=== PATIENT | female | born 1985 | race Caucasian/White ===

== ENCOUNTER 2018-11-12 13:21 | Inpatient (IN) | payer OTHER ==
[2018-11-12 15:05] VITALS: BMI 25.0
--- NOTE | 2018-11-12 15:24 | HP ---
COWS - Scale Resting Pulse: 0= [place] 80 or Below Sweatin= Chills/Flushing Restless Observation: 3= Extraneous Movement Pupil Size: 1= Pupils >than Normal Bone or Joint Aches: 2= Severe Diffuse Aches Runny Nose/ Eye Tearin= Runny Nose/Eyes GI Upset > 30mins: 2= Nausea/Diarrhea Tremor Observation: 2= Slight Tremor Visible Yawning Observation: 1= 1-2x During Session Anxiety or Irritability: 2=Irritable/Anxious Goose Flesh Skin: 0=Smooth Skin COWS Score: 16 CIWA Score Nausea/Vomitin Muscle Tremors: 2 Anxiety: 2 Agitation: 2 Paroxysmal Sweats: 1-Minimal Palms Moist Orientation: 0-Oriented Tacttile Disturbances: 1-Very Mild Itch/Numbness Auditory Disturbances: 1-Very Mild Visual Disturbances: 0-None Headache: 2-Mild CIWA-Ar Total Score: 13 - Admission Criteria OASAS Guidelines: Admission for Medically Managed Detox: Requires at least one of the followin. CIWA greater than 12 2. Seizures within the past 24 hours 3. Delirium tremens within the past 24 hours 4. Hallucinations within the past 24 hours 5. Acute intervention needed for co occurring medical disorder 6. Acute intervention needed for co occurring psychiatric disorder 7. Severe withdrawal that cannot be handled at a lower level of care (continued vomiting, continued diarrhea, abnormal vital signs) requiring intravenous medication and/or fluids 8. Patient presents the following: CIWA greater than 12 Admission Criteria Met: Admission criteria met Admission ROS [facility] Chief Complaint: i need help to stop using heroin,cocaine,alcohol Allergies/Adverse Reactions: Allergies Allergy/AdvReac Type Severity Reaction Status Date / Time peanut Allergy Severe Difficulty Verified 11/12/18 15:06 Breathing History of Present Illness: this 33 years old female with heroin,cocaine iv and alcohol dependence seeking detox,withdrawal symptom,last detox [facility] in 10/12 not completed seizure drug related,last 07/11 nicotine dependence weight loss bipolar disorder,ptsd no significant period of sobriety Exam Limitations: No Limitations - Ebola screening Have you traveled outside of the country in the last 21 days: No Have you had contact with anyone from an Ebola affected area: No Have you been sick,other than usual withdrawal symptoms: No Do you have a fever: No - Review of Systems Constitutional: Chills, Loss of Appetite, Malaise, Night Sweats, Changes in sleep, Weakness, Unintentional Wgt. Loss EENT: reports: Tearing, Nose Congestion Respiratory: reports: No Symptoms reported Cardiac: reports: No Symptoms Reported GI: reports: Diarrhea, Nausea, Vomiting, Abdominal cramping : reports: No Symptoms Reported Musculoskeletal: reports: Back Pain, Joint Pain, Muscle Pain, Joint Stiffness Integumentary: reports: Dryness Neuro: reports: Headache, Tremors Endocrine: reports: No Symptoms Reported Hematology: reports: No Symptoms Reported Psychiatric: reports: No Sypmtoms Reported, Judgement Intact, Mood/Affect Appropiate, Orientated x3, other (bipolar disorder) Other Systems: Reviewed and Negative Patient History - Patient Medical History Hx Anemia: No Hx Asthma: Yes (childhood asthma) Hx Chronic Obstructive Pulmonary Disease (COPD): No Hx Cancer: No Hx Cardiac Disorders: No Hx Congestive Heart Failure: No Hx Hypertension: No Hx Hypercholesterolemia: No Hx Pacemaker: No HX Cerebrovascular Accident: No Hx Seizures: Yes (last seizure 2017) Hx Dementia: No Hx Diabetes: No Hx Liver Disease: No Hx Genitourinary Disorders: No Hx Sexually Transmitted Disorders: No Hx Renal Disease (ESRD): No Hx Thyroid Disease: No Hx Human Immunodeficiency Virus (HIV): No (last 11/12/18) Hx Hepatitis C: No Hx Depression: No Hx Suicide Attempt: No Hx Bipolar Disorder: Yes (on med) Hx Schizophrenia: No Other Medical History: no suicidal,no homicidal - Patient Surgical History Hx Orthopedic Surgery: Yes (lenthening of right femur and tibia at age of 13) - PPD History Previous Implant?: Yes Documented Results: Negative w/o proof Implanted On Prior [facility] Admission?: No PPD to be Administered?: Yes - Reproductive History Patient is a Female of Child Bearing Age (11 -55 yrs old): Yes Last Menstrual Period: 10/28/18 Patient : No - Smoking Cessation Smoking history: Current every day smoker Have you smoked in the past 12 months: Yes Aproximately how many cigarettes per day: 15 Cigars Per Day: 0 Hx Chewing Tobacco Use: No Initiated information on smoking cessation: Yes 'Breaking Loose' booklet given: 11/12/18 - Substance & Tx. History Hx Alcohol Use: Yes Hx Substance Use: Yes Substance Use Type: Cocaine, Heroin Hx Substance Use Treatment: Yes ([facility] 10/12 not completed) - Substances Abused Heroin Route: Injection Frequency: Daily Amount used: 10 BAGS Age of first use: 29 Date of Last Use: 11/12/18 Cocaine Route: Injection Frequency: 3-6 times per week Amount used: 2-3 BAGS Age of first use: 29 Date of Last Use: 11/11/18 Alcohol Route: Oral Frequency: Daily Amount used: 1/2 [place] Age of first use: 29 Date of Last Use: 11/10/18 Crack Route: Smoking Frequency: Daily Amount used: 7 BAGS Age of first use: 32 Date of Last Use: 11/12/18 Family Disease History - Family Disease History Family History: Denies Admission Physical Exam [facility] - Vital Signs Vital Signs: Vital Signs - 24 hr 11/12/18 15:03 Temperature 97.1 F L Pulse Rate 73 Respiratory 20 Rate Blood Pressure 128/74 - Physical General Appearance: Yes: Moderate Distress, Tremorous, Irritable, Sweating, Anxious HEENTM: Yes: Normal ENT Inspection, MANUEL, Pharynx Normal Respiratory: Yes: Lungs Clear, Normal Breath Sounds, No Respiratory Distress, Other (history of childhood asthma) Neck: Yes: Within Normal Limits, Supple, Trachea in good position Breast: Yes: Breast Exam Deferred Cardiology: Yes: Within Normal Limits, Regular Rhythm, Regular Rate, S1, S2 Abdominal: Yes: Within Normal Limits, Normal Bowel Sounds, Non Tender, Flat, Soft Genitourinary: Yes: Within Normal Limits Back: Yes: Muscle Spasm Musculoskeletal: Yes: Back pain, Joint Stiffness, Muscle Pain Extremities: Yes: Tremors 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 - Detox or Rehab [facility] Level of Care: Medically Managed Detox Regimen/Protocol: Methadone/Librium S Breath Alcohol Content Breath Alcohol Content: 0 Urine Pregancy Test - Result Urine Test Results: Negative- NO Line Present Urine Drug Screen - Results Drug Screen Negative: No Urine Drug Screen Results: LINDA-Cocaine, OPI-Opiates, FEN-Fentanyl Inpatient Rehab Admission - Rehab Decision to Admit Inpatient rehab admission?: No
[2018-11-12] MEDS ORDERED: hydrOXYzine PAMOATE 25 MG CAPSULE (FP) PO PRN (15:44)
[2018-11-12] MEDS ORDERED: NICOTINE POLACRILEX 2 MG GUM BC PRN (15:44)
[2018-11-12] MEDS ORDERED: LOPERAMIDE HCL 2 MG CAPSULE PO PRN (15:44)
[2018-11-12] MEDS ORDERED: MENTHOL/PHENOL 1 EACH UD MM PRN (15:44)
[2018-11-12] MEDS ORDERED: MAGNESIUM CITRATE 300 ML BOTTLE PO PRN (15:44)
[2018-11-12] MEDS ORDERED: MAG HYDROX/AL HYDROX/SIMETH 30 ML UNIT-DOSE CUP PO PRN (15:44)
[2018-11-12] MEDS ORDERED: chlordiazePOXIDE HCL 25 MG CAPSULE PO PRN (15:44)
[2018-11-12] MEDS ORDERED: ACETAMINOPHEN 325 MG TABLET (FP) PO PRN (15:44)
[2018-11-12] MEDS ORDERED: IBUPROFEN 400 MG TABLET (FP) PO PRN (15:44)
[2018-11-12] MEDS ORDERED: P-EPHED 60MG/TRIPROLIDI 2.5MG TABLET PO PRN (15:44)
[2018-11-12] MEDS ORDERED: MAGNESIUM HYDROX 2400MG/30ML ORAL SUSPENSION 30 ML CUP PO PRN (15:44)
[2018-11-12] MEDS ORDERED: guaiFENesin/D-METHORPHAN HB 10 ML UNIT-DOSE CUPS PO PRN (15:44)
[2018-11-12] MEDS ORDERED: CYCLOBENZAPRINE HCL 10 MG TABLET (FP) PO PRN (15:47)
[2018-11-12] MEDS ORDERED: METHADONE HCL 10 MG TABLET (FOR DETOX USE ONLY) PO ONE ×2 (16:30→23:00)
[2018-11-12] MEDS ORDERED: NICOTINE 21 MG/24 HOURS TOPICAL PATCH TD SCH (16:30)
[2018-11-12] MEDS ORDERED: chlordiazePOXIDE HCL 25 MG CAPSULE PO SCH (17:00)
[2018-11-12 18:14] VITALS: BP 114/76; PULSE 67; TEMP 97
--- NOTE | 2018-11-12 19:46 | PN ---
[facility] Progress Note Note: com writer spoke with pt because pt states she did now want to continue with the detox. pt states she is not ready and wants to sign out. Pt was offered ancillary medication and for her to give the detox a chance but she insisted on leaving. Pt is AAOx3 and signed out AMA.
--- NOTE | 2018-11-12 19:47 | DS ---
[facility] Detox Discharge Summary Admission Date: 11/12/18 - History Present History: Alcohol Dependence, Opioid Dependence - Physical Exam Results Vital Signs: Vital Signs Temperature 97 F L 11/12/18 18:12 Pulse Rate 67 11/12/18 18:12 Respiratory Rate 16 11/12/18 18:12 Blood Pressure 114/76 11/12/18 18:12 O2 Sat by Pulse Oximetry (%) - Treatment Hospital Course: Discharged Condition Good - Medication Discharge Medications: Ambulatory Orders NK [No Known Home Medication] 11/12/18 - AMA Did Patient Leave Against Medical Advice: Yes (i want to go home)
[2018-11-12] MEDS ORDERED: MELATONIN 5 MG TABLETS PO PRN (22:00)
[2018-11-12] MEDS ORDERED: THIAMINE HCL 100 MG TABLET (FP) PO SCH (22:00)
[2018-11-12] MEDS ORDERED: cloNIDine HCL 0.1 MG TABLET PO SCH (22:00)
[2018-11-13] MEDS ORDERED: PRENATAL VITAMINS W/ FOLIC ACID TABLET (FP) PO SCH (10:00)
[2018-11-13] MEDS ORDERED: METHADONE HCL 10 MG TABLET (FOR DETOX USE ONLY) PO SCH (10:00)
[2018-11-13] MEDS ORDERED: chlordiazePOXIDE HCL 25 MG CAPSULE PO SCH (17:00)
[2018-11-14] MEDS ORDERED: METHADONE HCL 5 MG TABLET (FOR DETOX USE ONLY) PO SCH (10:00)
[2018-11-14] MEDS ORDERED: chlordiazePOXIDE 5 MG CAPSULE PO SCH (17:00)
[2018-11-15] MEDS ORDERED: chlordiazePOXIDE HCL 10 MG CAPSULE PO SCH (17:00)
[2018-11-16] MEDS ORDERED: METHADONE HCL 10 MG TABLET (FOR DETOX USE ONLY) PO SCH (10:00)
[2018-11-17] MEDS ORDERED: METHADONE HCL 5 MG TABLET (FOR DETOX USE ONLY) PO SCH (06:00)
== END 2018-11-12 20:05 | disposition left against medical advice (07) | DRG 770 ==
LOC: YASAS 13:21 → Y3N 16:15
PROVIDERS: ADMIT Surgery; ATTEND Surgery
PROC: HZ2ZZZZ Detoxification Services for Substance Abuse Treatment (ICD-10-PCS; principal; 2018-11-12)
DX: F11.23 Opioid dependence with withdrawal (principal); F10.230 Alcohol dependence with withdrawal, uncomplicated; F12.20 Cannabis dependence, uncomplicated; F17.210 Nicotine dependence, cigarettes, uncomplicated; F31.9 Bipolar disorder, unspecified; Z86.69 Personal history of other diseases of the nervous system and sense organs

== ENCOUNTER 2020-07-26 15:47 | Inpatient (IN) | payer OTHER ==
[2020-07-26 17:24] VITALS: BMI 22.1
--- NOTE | 2020-07-26 17:52 | BHS.RME ---
2019 N Coronavirus Screen - COVID-19 Screening Questions Dx of COVID-19 or had a positive test in the last 4 weeks?: No Contact with known/suspected COVID patient in last 14 days?: No Any of these symptoms or contact with someone who has?: Body Aches, Headache, Congestion or runny nose, Nausea or vomiting Traveled domestically/internationally in the last 14 days?: No Screen score: 4 Screen result: Positive Substance Use & Tx History - Substance Use History Heroin Substance amount: 10- 12 bags Frequency of use: Daily Substance route: Injection (ex: intravenous or skin popping) Date of Last Use: 07/26/20 (Started @age 29) Cocaine- Powder Substance amount: 5- $20 Frequency of use: Daily Substance route: Injection (ex: intravenous or skin popping) Date of Last Use: 07/26/20 (Started @age 29) Nicotine Substance amount: 20 Frequency of use: Daily Substance route: Smoking Date of Last Use: 07/26/20 (Started @age 29) - Last Treatment Date of last treatment: 07/19/20 Treatment type: Substance Use Disorder (LOGAN) Where was last treatment: Suboxone Physical/Psych/Mental Status - Behavior General Behavior: Increased activity (restlessness, agitation) Eye Contact: Decreased - Cooperativeness Cooperativeness: Cooperative - Thinking Thought Processes: Goal Directed Thought content: Future oriented - Physical Health Problems Is patient presently having any pain?: Yes (Legs and back r/t sciatica - increased because in withdrawal) Does patient presently have any injuries (include location): No Does patient currently have a fever: No Is patient : No COWS - Scale Resting Pulse: 1= [place] 81-100 Sweatin=Flushed/Facial Moisture Restless Observation: 3= Extraneous Movement Pupil Size: 2= Moderately Dilated Bone or Joint Aches: 1= Mild Discomfort Runny Nose/ Eye Tearin= Runny Nose/Eyes GI Upset > 30mins: 1= Stomach Cramp Tremor Observation: 4= Gross Tremor/Twitching Yawning Observation: 0= None Anxiety or Irritability: 1=Feels Anxious/Irritable Goose Flesh Skin: 0=Smooth Skin COWS Score: 17
--- NOTE | 2020-07-26 18:02 | HP ---
COWS - Scale Resting Pulse: 1= [place] 81-100 Sweatin=Flushed/Facial Moisture Restless Observation: 3= Extraneous Movement Pupil Size: 2= Moderately Dilated (Pupils = 4 mm) Bone or Joint Aches: 1= Mild Discomfort Runny Nose/ Eye Tearin= Runny Nose/Eyes GI Upset > 30mins: 1= Stomach Cramp Tremor Observation: 4= Gross Tremor/Twitching Yawning Observation: 0= None Anxiety or Irritability: 1=Feels Anxious/Irritable Goose Flesh Skin: 0=Smooth Skin COWS Score: 17 CIWA Score - Admission Criteria OASAS Guidelines: Admission for Medically Managed Detox: Requires at least one of the followin. CIWA greater than 12 2. Seizures within the past 24 hours 3. Delirium tremens within the past 24 hours 4. Hallucinations within the past 24 hours 5. Acute intervention needed for co occurring medical disorder 6. Acute intervention needed for co occurring psychiatric disorder 7. Severe withdrawal that cannot be handled at a lower level of care (continued vomiting, continued diarrhea, abnormal vital signs) requiring intravenous medication and/or fluids 8. Admitting History and Physical - Past Medical History ...LMP: 10/28/18 - Smoking History Smoking history: Current every day smoker Have you smoked in the past 12 months: Yes Aproximately how many cigarettes per day: 15 - Alcohol/Substance Use Hx Alcohol Use: Yes Admission ROS S - HPI Chief Complaint: I need to stop drugs and get my life together again. Allergies/Adverse Reactions: Allergies Allergy/AdvReac Type Severity Reaction Status Date / Time peanut Allergy Severe Difficulty Verified 07/26/20 18:34 Breathing History of Present Illness: 34 yo presents w/ opioid withdrawal seeking detox. One prior [facility] visit - 2019. UTox: + LINDA/FYL/MOP Hx seizures "r/t heroin withdrawal" 1 yr ago. Denies overdoses. States 5 months ago from drug use. States not trying to join . States picked up a prescription for Suboxone but decided not to use it. Has given permission to contact MAT provider and inform about detox and urine toxicology results. Consent for Release of Information signed. States can complete 6 day detox. Heroin Substance amount: 10- 12 bags Frequency of use: Daily Substance route: Injection (ex: intravenous or skin popping) Date of Last Use: 07/26/20 (Started @age 29) Cocaine- Powder Substance amount: 5- $20 Frequency of use: Daily Substance route: Injection (ex: intravenous or skin popping) Date of Last Use: 07/26/20 (Started @age 29) Nicotine Substance amount: 20 Frequency of use: Daily Substance route: Smoking Date of Last Use: 07/26/20 (Started @age 29) PMHx: Denies significant. EKG> prolonged QT MHHx: Depression. Anxiety. Denies thoughts of harming self or others SHx: Domiciled. Unemployed. Denies legal issues. Patient Name: Ashley Evans Date: 1985 [address]: [address] [place] [address] Sex: Female Rx Written Rx Dispensed Drug Quantity Days Supply Prescriber Name 07/19/2020 07/19/2020 buprenorphine-naloxone 8-2 mg sl film 90 30 Ze Trujillo MD Payment Method Insurance * Dispenser [facility] Exam Limitations: No Limitations - Ebola screening Have you traveled outside of the country in the last 21 days: No Have you had contact with anyone from an Ebola affected area: No Have you been sick,other than usual withdrawal symptoms: No Do you have a fever: No - Review of Systems Constitutional: Diaphoresis, Changes in sleep (Difficulty falling and staying asleep), Unintentional Wgt. Loss EENT: reports: Blurred Vision Respiratory: reports: No Symptoms reported Cardiac: reports: No Symptoms Reported GI: reports: Nausea : reports: No Symptoms Reported Musculoskeletal: reports: Back Pain, Other (leroy leg pain) Integumentary: reports: No Symptoms Reported Neuro: reports: Headache (Frontal headache throbbing "8". Denies head injury), Tremors Endocrine: reports: Increased Thirst Hematology: reports: No Symptoms Reported Psychiatric: reports: Orientated x3, Agitated, Anxious, Depressed (Denies thoughts of harming self or others) Patient History - Patient Medical History Hx Anemia: No Hx Asthma: Yes (childhood asthma) Hx Chronic Obstructive Pulmonary Disease (COPD): No Hx Cancer: No Hx Cardiac Disorders: No Hx Congestive Heart Failure: No Hx Hypertension: No Hx Hypercholesterolemia: No Hx Pacemaker: No HX Cerebrovascular Accident: No Hx Seizures: Yes (last seizure 2017) Hx Dementia: No Hx Diabetes: No Hx Gastrointestinal Disorders: No Hx Liver Disease: No Hx Genitourinary Disorders: No Hx Sexually Transmitted Disorders: No Hx Renal Disease (ESRD): No Hx Thyroid Disease: No Hx Human Immunodeficiency Virus (HIV): No (last 11/12/18) Hx Hepatitis C: No Hx Depression: No Hx Suicide Attempt: No Hx Bipolar Disorder: Yes (on med) Hx Schizophrenia: No - Patient Surgical History Past Surgical History: Yes Hx Orthopedic Surgery: Yes (lenthening of right femur and tibia at age of 13) - PPD History Previous Implant?: Yes Documented Results: Negative w/proof Implanted On Prior R Admission?: Yes Date: 11/14/18 PPD to be Administered?: Yes - Reproductive History Patient is a Female of Child Bearing Age (11 -55 yrs old): Yes Last Menstrual Period: 02/26/20 Patient : Yes - Smoking Cessation Smoking history: Current every day smoker Have you smoked in the past 12 months: Yes Aproximately how many cigarettes per day: 20 Cigars Per Day: 0 Hx Chewing Tobacco Use: No Initiated information on smoking cessation: Yes 'Breaking Loose' booklet given: 07/26/20 - Substance & Tx. History Hx Substance Use Treatment: Yes (detox, rehabs, past suboxone) Admission Physical Exam [facility] - Vital Signs Vital Signs: Vital Signs - 24 hr 07/26/20 17:23 Temperature 98.6 F Pulse Rate 88 Respiratory 18 Rate Blood Pressure 132/72 - Physical General Appearance: Yes: Moderate Distress, Tremorous, Sweating, Anxious HEENTM: Yes: EOMI, Hearing grossly Normal, Normocephalic, Normal Voice, MANUEL ( Pupils = 4 mm), Pharynx Normal, Nasal Congestion, Rhinorrhea Respiratory: Yes: Lungs Clear, Normal Breath Sounds, No Respiratory Distress Neck: Yes: No masses,lesions,Nodules, Supple Breast: Yes: Breast Exam Deferred Cardiology: Yes: Regular Rhythm, Regular Rate, S1, S2, Murmur Abdominal: Yes: Non Tender, Flat, Soft, Increased Bowel Sounds Genitourinary: Yes: Within Normal Limits Back: Yes: Normal Inspection Musculoskeletal: Yes: full range of Motion, Gait Steady Extremities: Yes: Normal Capillary Refill, Tremors (Gross @ rest) 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 NML intact, Fully Oriented, Alert, Motor Strength 5/5 Integumentary: Yes: Normal Color, Dry (except for facial area), Warm, Moist (Increased facial moisture), Track Reina (Track reina up and down both arms w/ increased warmth and erythema) Lymphatic: Yes: Within Normal Limits - Diagnostic (1) Cellulitis Current Visit: Yes Status: Acute Qualifiers: Site of cellulitis: extremity Site of cellulitis of extremity: upper extremity Laterality: unspecified laterality Qualified Code(s): L03.119 - Cellulitis of unspecified part of limb Comment: Bilateral both arms and (L) hand (2) Cocaine dependence Current Visit: Yes Status: Chronic Qualifiers: Substance use status: uncomplicated Qualified Code(s): F14.20 - Cocaine dependence, uncomplicated (3) IVDU (intravenous drug user) Current Visit: Yes Status: Chronic (4) Nicotine dependence Current Visit: Yes Status: Chronic Qualifiers: Nicotine product type: cigarettes Substance use status: uncomplicated Qualified Code(s): F17.210 - Nicotine dependence, cigarettes, uncomplicated (5) Opioid dependence with withdrawal Current Visit: Yes Status: Acute (6) Weight loss Current Visit: Yes Status: Chronic (7) Murmur, cardiac Current Visit: Yes Status: Chronic Comment: Denies CP/SOB/edema (8) Abrasion Current Visit: Yes Status: Acute Comment: Superficial w/ scab Cleared for Admission S - Detox or Rehab [facility] Level of Care: Medically Managed Detox Regimen/Protocol: Methadone Claeared for Rehab Admission: No Breathalyzer - Breathalyzer Breathalyzer: 0 Urine Drug Screen - Test Device Lot number: [id number] Expiration date: 03/01/22 - Control Is test valid?: Yes - Results Drug screen NEGATIVE: No Urine drug screen results: LINDA-Cocaine, FEN-Fentanyl, MOP-Opiates Inpatient Rehab Admission - Rehab Decision to Admit Inpatient rehab admission?: No
[2020-07-26] MEDS ORDERED: MENTHOL/PHENOL 1 EACH UD MM PRN (18:21)
[2020-07-26] MEDS ORDERED: MAGNESIUM HYDROX 2400MG/30ML ORAL SUSPENSION 30 ML CUP PO PRN (18:21)
[2020-07-26] MEDS ORDERED: MAGNESIUM CITRATE 300 ML BOTTLE PO PRN (18:21)
[2020-07-26] MEDS ORDERED: ACETAMINOPHEN 325 MG TABLET (FP) PO PRN ×2 (18:21)
[2020-07-26] MEDS ORDERED: BISMUTH SUBSALICYLATE 524 MG/30 ML UD PO PRN (18:21)
[2020-07-26] MEDS ORDERED: ONDANSETRON *ODT* 4 MG TABLET SL PRN (18:21)
[2020-07-26] MEDS ORDERED: NICOTINE POLACRILEX 2 MG GUM BUC PRN (18:21)
[2020-07-26] MEDS ORDERED: METHADONE HCL 10 MG TABLET (FOR DETOX USE ONLY) PO ONE ×3 (18:21→20:00)
[2020-07-26] MEDS ORDERED: MAG HYDROX/AL HYDROX/SIMETH 30 ML UNIT-DOSE CUP PO PRN (18:21)
[2020-07-26] MEDS ORDERED: METHADONE HCL 10 MG TABLET (FOR DETOX USE ONLY) ONE (18:42)
--- OUTSIDE RECORDS SUMMARY | 2020-07-26 19:15 | XMS ---
:1985 Author Organization [facility] Support Name Relationship Address Phone THOMAS GAMINO FRIEND [address] [address] UE Unavailable Unavailable Unavailable DIMAS [employer]NER [address] [phone] [place] [address] Re-disclosure Warning The records that you are about to access may contain information from federally- assisted alcohol or drug abuse programs. If such information is present, then the following federally mandated warning applies: This information has been disclosed to you from records protected by federal confidentiality rules (42 CFR part 2). The federal rules prohibit you from making any further disclosure of this information unless further disclosure is expressly permitted by the written consent of the person to whom it pertains or as otherwise permitted by 42 CFR part 2. A general authorization for the release of medical or other information is NOT sufficient for this purpose. The Federal rules restrict any use of the information to criminally investigate or prosecute any alcohol or drug abuse patient.The records that you are about to access may contain highly sensitive health information, the redisclosure of which is protected by Article 27-F of the [facility] Public Health law. If you continue you may haveaccess to information: Regarding HIV / AIDS; Provided by facilities licensed or operated by the [facility] Office of Mental Health; or Provided by the [facility] Office for People With Developmental Disabilities. If such information is present, then the following [facility] mandated warning applies: This information has been disclosed to you from confidential records which are protected by state law. State law prohibits you from making any further disclosure of this information without the specific written consent of the person to whom it pertains, or as otherwise permitted by law. Any unauthorized further disclosure in violation of state law may result in a fine or long-term sentence or both. A general authorization for the release of medical or other information is NOT sufficient authorization for further disclosure. Insurance Providers Payer name Policy type Policy ID Covered Covered constitution party's Policy P lili / Coverage constitution party ID relationship to Rahman Inf ormation type [facility] [id number] SP [id number] MEDICAID [employer] [id number] SP [id number] T Results ID Date Data Source [id number] 06/27/2020 11:32:00 AM EDT [facility] Name Value Range Interpretation Description Data Sup porting Code Source(s) Document(s ) SARS [facility] Coronavirus 2 RNA Presence Respiratory Specimen AARTI Probe Detection This lab was ordered by [facility] and rep orted by [facility]. ID Date Data Source [id number] 02/15/2020 02:11:00 AM EDT [facility] Name Value Range Interpretation Description Data Sup porting Code Source(s) Document(s ) SARS [facility] Coronavirus 2 RNA Presence Respiratory Specimen AARTI Probe Detection This lab was ordered by [facility] and rep orted by [facility]. ID Date Data Source [id number] 01/30/2020 11:15:00 PM EDT [facility] Name Value Range Interpretation Description Data Sup porting Code Source(s) Document(s ) [place] [facility] Coronavirus 2 RNA Presence Respiratory Specimen AARTI Probe Detection This lab was ordered by [facility] and rep orted by [facility]. Procedure
[2020-07-26] MEDS: CEPHALEXIN MONOHYDRATE 500 MG CAPSULE (UD) PO SCH (23:07)
[2020-07-26] MEDS: BACITRACIN 0.9 GM PACKET TP SCH (23:07)
[2020-07-26] MEDS: MELATONIN 5 MG TABLETS PO SCH (23:07)
[2020-07-26] MEDS: THIAMINE HCL 100 MG TABLET (FP) PO SCH (23:08)
[2020-07-27] MEDS: CEPHALEXIN MONOHYDRATE 500 MG CAPSULE (UD) PO SCH ×4 (07:17→23:30)
[2020-07-27] MEDS: cloNIDine HCL 0.1 MG TABLET PO PRN ×3 (07:18→21:54)
[2020-07-27] MEDS: METHOCARBAMOL 500 MG TABLET PO PRN ×2 (07:18→21:54)
--- NOTE | 2020-07-27 09:49 | PN ---
[facility] COWS - Scale Resting Pulse: 0= ID 80 or Below Sweatin= Chills/Flushing Restless Observation: 0= Sits Still Pupil Size: 1= Pupils >than Normal Bone or Joint Aches: 1= Mild Discomfort Runny Nose/ Eye Tearin= None GI Upset > 30mins: 2= Nausea/Diarrhea Tremor Observation of Outstretched Hands: 2= Slight Tremor Visible Yawning Observation: 0= None Anxiety or Irritability: 2=Irritable/Anxious Goose Flesh Skin: 3=Piloerection COWS Score: 12 [facility] Progress Note (SOAP) Subjective: Patient Name: Ashley Almonte Date: 1985 Address: [address] [place] [address] Sex: Female Rx Written Rx Dispensed Drug Quantity Days Supply Prescriber Name 07/19/2020 07/19/2020 buprenorphine-naloxone 8-2 mg sl film 90 30 Ze Trujillo MD Payment Method Insurance * Dispenser [facility] 34 years old female was admitted on 07/26/20 for opiate withdrawal sx management treating with methadone detox regiment received methadone 10+20 mg on 07/26/20 ms almonte tolerated well so does keflex bmi 22.1 continue ensure supplement ms almonte states that he does not want suboxone encourage methadone maintenance program for opiate abuse treatment Objective: 07/27/20 10:06 Vital Signs - 24 hr 07/26/20 07/26/20 07/26/20 17:23 19:53 20:00 Temperature 98.6 F 98.6 F 98.6 F Pulse Rate 88 70 70 Respiratory 18 18 18 Rate Blood Pressure 132/72 129/80 129/80 O2 Sat by Pulse 98 98 Oximetry (%) 07/27/20 07/27/20 07:22 08:36 Temperature 97.8 F Pulse Rate 89 80 Respiratory 18 Rate Blood Pressure 133/92 129/79 O2 Sat by Pulse Oximetry (%) Laboratory Tests 07/26/20 17:24 POC Urine HCG, Qual Negative 07/27/20 10:09 admission lab cancelled reorder [facility] syphilis rpr Assessment: 07/27/20 10:10 opiate withdrawal Plan: methadone regiment
[2020-07-27] MEDS ORDERED: METHADONE HCL 5 MG TABLET (FOR DETOX USE ONLY) ONE (09:56)
[2020-07-27] MEDS ORDERED: METHADONE HCL 10 MG TABLET (FOR DETOX USE ONLY) ONE (09:56)
[2020-07-27] MEDS ORDERED: METHADONE (DETOX) 20 MG, METHADONE (DETOX) 5 MG PO ONE (10:00)
[2020-07-27] MEDS: BACITRACIN 0.9 GM PACKET TP SCH ×2 (10:19→22:04)
[2020-07-27] MEDS: NICOTINE 21 MG/24 HOURS TOPICAL PATCH TD SCH (10:19)
[2020-07-27] MEDS: PRENATAL VITAMINS W/ FOLIC ACID TABLET (FP) PO SCH (10:35)
--- NOTE | 2020-07-27 10:39 | EKG ---
Test Reason : Blood Pressure : / mmHG Vent. Rate : 079 BPM Atrial Rate : 079 BPM P-R Int : 142 ms QRS Dur : 076 ms QT Int : 460 ms P-R-T Axes : 065 056 050 degrees QTc Int : 527 ms NORMAL SINUS RHYTHM PROLONGED QT ABNORMAL ECG NO PREVIOUS ECGS AVAILABLE Confirmed by MD JALEN, THOMAS ([id number]) on 07/27/2020 10:38:49 AM Referred By: Confirmed By:THOMAS RAO MD
[2020-07-27] MEDS: IBUPROFEN 400 MG TABLET (FP) PO PRN ×2 (14:49→21:54)
[2020-07-27] MEDS: THIAMINE HCL 100 MG TABLET (FP) PO SCH (21:53)
[2020-07-27] MEDS: MELATONIN 5 MG TABLETS PO SCH (22:31)
[2020-07-28] MEDS: CEPHALEXIN MONOHYDRATE 500 MG CAPSULE (UD) PO SCH (06:14)
[2020-07-28 08:54] VITALS: BP 123/66; PULSE 75; TEMP 96.9
[2020-07-28] MEDS: METHOCARBAMOL 500 MG TABLET PO PRN (09:35)
[2020-07-28] MEDS: BACITRACIN 0.9 GM PACKET TP SCH (09:35)
[2020-07-28] MEDS: PRENATAL VITAMINS W/ FOLIC ACID TABLET (FP) PO SCH (09:36)
[2020-07-28] MEDS: NICOTINE 21 MG/24 HOURS TOPICAL PATCH TD SCH (09:41)
[2020-07-28] MEDS ORDERED: METHADONE HCL 10 MG TABLET (FOR DETOX USE ONLY) PO ONE (10:00)
--- NOTE | 2020-07-28 11:06 | DS ---
[facility] Detox Discharge Summary Admission Date: 07/26/20 Discharge Date: 07/28/20 - History Present History: Opioid Dependence Additional Comments: 34 years old female was admitted on 07/26/20 for opiate withdrawal sx management treating with methadone detox regiment ms almonte insists to leave the detox "enough here for me" "I want to go home" case discussed with counselor for aftercare arrangement ms almonte refuses aftercare referral ms almonte is alert oriented x 3 speech clearly coherently ambulating steady gaits General Appearance: Yes: no Distress, mild Tremorous, no Sweating, mild Anxious HEENTM: Yes: EOMI, Hearing grossly Normal, Normocephalic, Normal Voice, MANUEL (Pupils = 3 mm), Pharynx Normal, mild Nasal Congestion, Respiratory: Yes: Lungs Clear, Normal Breath Sounds, No Respiratory Distress Neck: Yes: No masses,lesions,Nodules, Supple Breast: Yes: Breast Exam Deferred Cardiology: Yes: Regular Rhythm, Regular Rate, S1, S2, Murmur Abdominal: Yes: Non Tender, Flat, Soft, Increased Bowel Sounds Genitourinary: Yes: Within Normal Limits Back: Yes: Normal Inspection Musculoskeletal: Yes: full range of Motion, Gait Steady Extremities: Yes: Normal Capillary Refill, mild Tremors (Gross @ rest) Neurological: Yes: 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 NML intact, Fully Oriented, Alert, Motor Strength 5/5 Integumentary: Yes: Normal Color, Dry (except for facial area), Warm, Moist, Track Reina (Track reina up and down both arms w/ increased warmth and erythema) Lymphatic: Yes: Within Normal Limits Pertinent Past History: time for discharge 59 minutes treatment team met with ms almonte along with senior patient coordinator to discuss benefits of methadone regiment completion ms almonte insists to leave the detox today and "go home" referral options provided as [facility] Senior patient coordinator met with ms almonte multiple times for methadone regiment completion Ms almonte insists to go home strong recommend ms almonte consider medication assisted treatment program and apple picker narcan from pharmacy - Physical Exam Results Vital Signs: Vital Signs Temperature 96.9 F L 07/28/20 08:35 Pulse Rate 75 07/28/20 08:35 Respiratory Rate 18 07/28/20 08:35 Blood Pressure 123/66 07/28/20 08:35 O2 Sat by Pulse Oximetry (%) 99 07/27/20 21:47 Pertinent Admission Physical Exam Findings: opiate withdrawal Vital Signs - 24 hr 07/27/20 07/27/20 07/28/20 17:43 21:47 08:35 Temperature 97.8 F 97.5 F L 96.9 F L Pulse Rate 73 87 75 Respiratory 19 18 18 Rate Blood Pressure 154/78 141/81 123/66 O2 Sat by Pulse 99 Oximetry (%) Laboratory Tests 07/26/20 17:24 POC Urine HCG, Qual Negative Laboratory Tests refuses admission lab work - Treatment Hospital Course: Detox Protocol Followed, Responded well, Discharged Condition Good Patient has Accepted a Rehab Referral to: [facility] - Medication Discharge Medications: Ambulatory Orders Naloxone HCl [Narcan] 4 mg NS ASDIR PRN #1 spray 07/28/20 - Diagnosis (1) Substance induced mood disorder Status: Suspected (2) Opioid dependence with withdrawal Status: Acute (3) Nicotine dependence Status: Acute Qualifiers: Nicotine product type: cigarettes Substance use status: in withdrawal Qualified Code(s): F17.213 - Nicotine dependence, cigarettes, with withdrawal (4) Weight loss Status: Chronic - AMA Did Patient Leave Against Medical Advice: Yes COWS (PN) - Opiate Withdrawal Resting Pulse: 0= AL 80 or Below Sweatin= Chills/Flushing Restless Observation: 0= Sits Still Pupil Size: 1= Pupils >than Normal Bone or Joint Aches: 1= Mild Discomfort Runny Nose/ Eye Tearin= None GI Upset > 30mins: 1= Stomach Cramp Tremor Observation of Outstretched Hands: 2= Slight Tremor Visible Yawning Observation: 0= None Anxiety or Irritability: 2=Irritable/Anxious Goose Flesh Skin: 0=Smooth Skin COWS Score: 8
[2020-07-29] MEDS ORDERED: METHADONE (DETOX) 10 MG, METHADONE (DETOX) 5 MG PO ONE (10:00)
[2020-07-30] MEDS ORDERED: METHADONE HCL 10 MG TABLET (FOR DETOX USE ONLY) PO ONE (10:00)
[2020-07-31] MEDS ORDERED: METHADONE HCL 5 MG TABLET (FOR DETOX USE ONLY) PO ONE (06:00)
== END 2020-07-28 11:21 | disposition left against medical advice (07) | DRG 770 ==
LOC: YASAS 15:47 → Y3N 19:12
PROVIDERS: ADMIT Allergy & Immunology; ATTEND Allergy & Immunology
PROC: HZ2ZZZZ Detoxification Services for Substance Abuse Treatment (ICD-10-PCS; principal; 2020-07-26)
DX: F11.23 Opioid dependence with withdrawal (principal); F14.20 Cocaine dependence, uncomplicated; F17.210 Nicotine dependence, cigarettes, uncomplicated; F19.24 Other psychoactive substance dependence with psychoactive substance-induced mood disorder; F41.9 Anxiety disorder, unspecified; F31.9 Bipolar disorder, unspecified; L03.113 Cellulitis of right upper limb; M54.41 Lumbago with sciatica, right side; M54.42 Lumbago with sciatica, left side; R25.2 Cramp and spasm; R01.1 Cardiac murmur, unspecified; R63.4 Abnormal weight loss; Z68.22 Body mass index [BMI] 22.0-22.9, adult; Z86.69 Personal history of other diseases of the nervous system and sense organs; Z91.010 Allergy to peanuts; T14.8XXA Other injury of unspecified body region, initial encounter; X58.XXXA Exposure to other specified factors, initial encounter; Y93.89 Activity, other specified; Y92.89 Other specified places as the place of occurrence of the external cause; Y99.8 Other external cause status
CPT/HCPCS: 81025; 93005; 93010; C9803; J0735; U0003